=== PATIENT | female | born 1975 | race Asian ===

== ENCOUNTER → 2016-07-31 | Outpatient (CLI) | payer OTHER ==
[~2016-07-31] MED LIST: IBUP-1428 PO; PLMINUNK INH; PRENTAB26 PO; SUPERCREAM TD; SYN100 PO
--- NOTE | 2016-07-31 12:53 | MAMMOGRAPHY REPORT ---
BILATERAL DIGITAL DIAGNOSTIC MAMMOGRAM TOMOSYNTHESIS WITH CAD AND TARGETED LEFT ULTRASOUND: 7 CLINICAL HISTORY: The patient reports a palpable lump in her left breast, which she had evaluated in 2013 and no suspicious abnormality was seen on imaging at that time. She still feels the lump and believes it may feel more prominent due to recent weight loss. TECHNIQUE: Breast tomosynthesis in addition to standard 2D mammography was performed. Current study was also evaluated with a Computer Aided Detection (CAD) system. Bilateral CC and MLO 2-D and mo synthesis images were obtained. COMPARISON: Comparison is made to exam dated: 06/05/2013 mammogram. BREAST COMPOSITION: There are scattered areas of fibroglandular density in both breasts. FINDINGS: A triangle marker lopez the site of the palpable lump in the left upper outer quadrant. No suspicious mass or other suspicious finding is seen at the site of the triangle marker. There ar e no suspicious masses, calcifications, or areas of architectural distortion noted within either shari ast mammographically. There has been no significant interval change compared to the prior exam. Targeted ultrasound was performed of the area of the palpable lump pointed out by the patient, in th e left breast at 1:00, approximately 8 cm from the nipple. Sonographically normal tissue is seen in this region, without evidence of a mass or other suspicious sonographic abnormality. IMPRESSION: ACR BI-RADS CATEGORY 1: NEGATIVE, TARGETED ULTRASOUND ACR BI-RADS CATEGORY 1: NEGATIVE No suspicious mammographic or sonographic abnormality at the site of the palpable left breast lump p ointed out by the patient. There is no mammographic or targeted sonographic evidence of malignancy. Recommend clinical follow-up for the palpable lump; any decision to biopsy should be based on clin ical grounds. Also recommend routine bilateral screening mammograms in one year. The patient has been verbally notified of the results. Approximately 10% of breast cancers are not detected with mammography. A negative mammographic repor t should not delay biopsy if a clinically suggestive mass is present. Any Villareal M.D. ah/:07/31/2016 09:20:43 Digital Account Executive: Pallavi MORENO(Rupesh)(Cinda), [facility] letter sent: Normal / OVERALL STUDY BIRADS: 1 Negative
== END | disposition home or self-care (01) ==
LOC: C.MAMM 08:27
PROVIDERS: ATTEND Nurse Practitioner Adult Health
DX: Z12.31 Encounter for screening mammogram for malignant neoplasm of breast (principal); N63 Unspecified lump in breast

== ENCOUNTER → 2016-12-18 | Outpatient (CLI) | payer OTHER ==
[2016-12-18 19:38] LABS: THYROID STIMULATING HORMONE 1.93 uIu/ml (0.300-4.500)
== END | disposition home or self-care (01) ==
LOC: C.LAB 18:56
PROVIDERS: ATTEND Internal Medicine Endocrinology, Diabetes & Metabolism
DX: E03.9 Hypothyroidism, unspecified (principal)

== ENCOUNTER → 2017-02-23 | Outpatient (CLI) | payer OTHER ==
--- NOTE | 2017-02-26 19:19 | POLYSOMNOGRAPH REPORT ---
CLINICAL DATA: A 41-year-old female with a BMI of 29.44, referred by Kisha Ramos and myself for a sleep study. She has a history of snoring, hypersomnolence, weight gain, and fragmented sleep. Her [place] sleepiness score is 10/24. On the evening of 02/23/2017, a home sleep apnea test was performed using a Babble type 3 monitor. RECORDING RESULTS: Total recording time was 10 hours. The patient's monitoring time and estimated sleep time was 7.5 hours. RESPIRATORY DATA: There was no evidence of clinically significant sleep apnea seen. The LILIA was 0.4. There was 1 central apneic episode and 2 hypopneic episodes recorded. The longest respiratory event was 21 seconds. OXIMETRY DATA: Mean saturation was 96%. Minimum saturation was 80%. Time below 89% was 3 minutes. HEART RATE DATA: Heart rates ranged from 31-88 beats per minute. SNORING DATA: Snoring was heard intermittently throughout the night. IMPRESSION: No evidence of clinically significant sleep apnea/hypopnea or nocturnal hypoxemia to explain this patient's symptoms. RECOMMENDATIONS: The patient should continue to practice good sleep hygiene. SALO
== END | disposition home or self-care (01) ==
LOC: C.NEUR 15:48
PROVIDERS: ATTEND Physician Assistant Medical
DX: R53.83 Other fatigue (principal); R06.83 Snoring; R63.5 Abnormal weight gain; G47.10 Hypersomnia, unspecified; E55.9 Vitamin D deficiency, unspecified; E03.9 Hypothyroidism, unspecified; L68.0 Hirsutism; R73.03 Prediabetes

== ENCOUNTER → 2017-10-27 | Outpatient (CLI) | payer OTHER ==
[2017-10-27 12:37] LABS: HEMOGLOBIN A1C 5.3 % (4.5-5.6)
[2017-10-27 12:53] LABS: BLOOD UREA NITROGEN 11 mg/dl (7-18); CALCIUM 8.8 mg/dl (8.5-10.1); CARBON DIOXIDE 25 mmol/L (21-32); CHOLESTEROL 119 mg/dl (0-200); CREATININE 0.82 mg/dl (0.60-1.20); GLUCOSE 95 mg/dl (70-99); LDL CHOLESTEROL CALCULATED 60 mg/dl; POTASSIUM 4.3 mmol/L (3.5-5.1); SODIUM 140 mmol/L (136-145)
== END | disposition home or self-care (01) ==
LOC: C.LAB1850 09:54
PROVIDERS: ATTEND Nurse Practitioner Adult Health
DX: E03.9 Hypothyroidism, unspecified (principal); R53.83 Other fatigue; F32.9 Major depressive disorder, single episode, unspecified; Z13.220 Encounter for screening for lipoid disorders